=== PATIENT | male | born 1930 | race Caucasian/White ===

== ENCOUNTER 2016-09-28 09:31 | Outpatient (CLI) | payer MEDICARE, OTHER ==
[~2016-09-28] VITALS: Ht 175.3 cm; Wt 92.7 kg
[2016-09-28] VITALS (9 sets, daily range): BP systolic 142–180; BP diastolic 71–88; PULSE 73–91; TEMP 97.4–98
[2016-09-28] MEDS ORDERED: SYNTHROID0.05 MG/TA PO (10:47)
[2016-09-28] MEDS ORDERED: FERRO-TIME325 MG PO (10:48)
[2016-09-28] MEDS ORDERED: ACTOS 45MG45 MG/TAB PO (10:50)
[2016-09-28] MEDS ORDERED: GLUCOVANCE 1.251 TAB PO (10:50)
[2016-09-28] MEDS ORDERED: NEXIUM 40MG40 MG PO (10:51)
[2016-09-28] MEDS ORDERED: LOTENSIN 1010 MG/TAB PO (10:51)
== END 2016-09-28 15:45 | disposition home or self-care (01) ==
LOC: COL.CAR 09:31
DX: M48.56XG Collapsed vertebra, not elsewhere classified, lumbar region, subsequent encounter for fracture with delayed healing (principal)
CPT/HCPCS: C1713; J2250; J3010; J7120; Q9967